=== PATIENT | male | born 2000 | race Caucasian/White ===

== ENCOUNTER 2022-08-25 17:55 | Inpatient (IN) | payer OTHER ==
[~2022-08-25] VITALS: Ht 160 cm; Wt 75.3 kg
[~2022-08-25 17:55] MED LIST: KETO10TA2 PO
--- NOTE | 2022-08-25 18:24 | NUR ---
PTE ALERTA Y ORIENTADO X3 EN COMPANAI DE FAMILIAR. PTE REFIERE PRESION FREDRICK, MIGRANA, MAREO, NAUSEAS DESDE EL SABADO. SE RELIZA EKG Y SE PRESENTA AL EL CUAL EVALUA EL MISMO.
--- NOTE | 2022-08-25 18:38 | NUR ---
PTE EVALUADO POR . MS SCHMITT ORIENTA PTE SOBRE TX A SEGUIR, EL CUAL REFIERE ENTENDER. SE COLECTAN MUESTRAS Y SE CANALIZA PTE UTILIZANDO MEDIDAS ASEPTICAS. SE ADM. MEDICAMENTOS YOAN ORDEN MEDICA
--- NOTE | 2022-08-25 21:30 | NUR ---
FAMILIAR INDICA QUE PTE NO RESPONDE. SE OBSERVA A PACIENTE PALIDO, FRIO Y NO RESPONDE A ESTIMULO VERBAL. SE MIDEN SIGNOS VITALES: B/P:156/98, P:123/MIN,T:99.6 Y SO2:100%. SE REALIZA DXT, PRESENTANDO 71MG/DL. SE UBICA A PACIENTE EN BRITTANY, SE ADMINISTRA DEXTROSA 50% 25GM IV. SE REALIZA EKG. SE NOTIFICA A . 2200- PACIENTE RESPONDE A ESTIMULO DE DOLOR Y VERBAL Y PRESENTA UN EPISODIO DE VOMITO. SE ADMINISTRA ZOFRAN 4MG IV STAT. SE REALIZA DXT, PRESENTANDO 174MG/DL. SE TRASLADA A ESTUDIO CT. LUEGO DEL ESTUDIO SE UBICA A PACIENTE EN CAMA CON BARANDAS ELEVADAS POR SEGURIDAD, SE CONECTA A MONITOR CARDIACO Y OXIMETRIA DE PULSO. SE TINA A PACIENTE EN COMPANIA DE FAMILIAR. PENDIENTE MUESTRA DE U/A Y DRUG SCREEN, SE ENTREGA ENVASE PARA DANIELLA DE MUESTRA.
== END 2022-08-27 14:57 | disposition home or self-care (01) | DRG 882 ==
LOC: ER 17:55 → MEDI 22:47
PROVIDERS: ADMIT Internal Medicine; ATTEND Internal Medicine
PROC: BW28ZZZ Computerized Tomography (CT Scan) of Head (ICD-10-PCS; principal; 2022-08-25)
PROC: B24BZZZ Ultrasonography of Heart with Aorta (ICD-10-PCS; 2022-08-25)
PROC: 4A12X4Z Monitoring of Cardiac Electrical Activity, External Approach (ICD-10-PCS; 2022-08-26)
DX: F45.8 Other somatoform disorders (principal); F41.9 Anxiety disorder, unspecified; R00.2 Palpitations; R41.82 Altered mental status, unspecified; F41.0 Panic disorder [episodic paroxysmal anxiety]; Z20.822 Contact with and (suspected) exposure to COVID-19; J45.909 Unspecified asthma, uncomplicated

== ENCOUNTER 2025-02-16 11:43 | Emergency (ER) | payer OTHER ==
[~2025-02-16] VITALS: Ht 160 cm; Wt 72.6 kg
[2025-02-16] MEDS ORDERED: DEXAMETHASONE SODIUM PHOSPHATE 4 MG/ML VIAL IV STA (13:11)
[2025-02-16] MEDS ORDERED: DIPHENHYDRAMINE HCL 50 MG/ML VIAL 1ML IV STA (13:11)
[2025-02-16] MEDS ORDERED: METOCLOPRAMIDE HCL 5 MG/ML VIAL IV STA (13:12)
[2025-02-16 16:14] LABS: BASO % 0.7 % (0.1-1.2); EOS # 0.05 (0.04-0.54); EOS % 0.7 % (0.7-7.0); LYMPH # 2.68 (1.18-3.74); LYMPH % 36.4 % (19.3-53.1); MEAN PLATELET VOLUME 10.00 fl (9.4-12.4); MONO # 0.31 (0.24-0.82); MONO % 4.2 % (4.7-12.5); NEUT # 4.27 (1.56-6.13); NEUT % 57.9 % (34.0-71.1); RED CELL DISTRIBUTION WIDTH 11.6 % (11.6-14.4)
[2025-02-16] MEDS ORDERED: IBU600 MG PO (16:39)
[2025-02-16 16:42] LABS: INR 1.02
[2025-02-16 16:48] LABS: ALT/SGPT 68 U/L (12-78); AST/SGOT 49 U/L (15-37); BILIRUBIN TOTAL 0.55 mg/dL (0.3-1.2); BUN CREA RATIO 19 (7.0-25.0); CREATININE SERUM 0.85 mg/dL (0.70-1.30); GFR 109.82; GLOBULINA 4.1 G/DL (2.4-3.5); GLUCOSE FASTING 74 mg/dL (65-100); OSMOLALITY SERUM 277 MOSM/KG (275-295)
[2025-02-16 17:35] LABS: URINE APPEARANCE Clear; URINE BILIRRUBIN Negative (NEGATIVE); URINE BLOOD Negative; URINE COLOR Yellow; URINE GLUCOSE Negative (NEGATIVE); URINE KETONE Negative (NEGATIVE); URINE LEUKOCYTE Negative; URINE NITRATE Negative; URINE PROTEIN Negative (NEGATIVE); URINE UROBILINOGEN 1.0 E.U./dl
[2025-02-16 17:40] LABS: URINE EPITHELIAL CELLS 2.1 uL (0.0-38.8); URINE RBC 2.7 uL (0.0-20.8); URINE WBC 3.9 uL (0.0-23.2)
[2025-02-16 17:57] LABS: URINE BACTERIA 1.1 uL (0.0-1933); URINE CAST 0.14 uL (0.0-1.40)
== END 2025-02-16 18:19 | disposition home or self-care (01) ==
LOC: ER 11:43
PROVIDERS: Physician Assistant Medical
DX: G43.809 Other migraine, not intractable, without status migrainosus (principal)